=== PATIENT | female | born 1980 | race Caucasian/White ===

== ENCOUNTER → 2017-05-02 | Outpatient (CLI) | payer OTHER ==
[~2017-05-02] MED LIST: DOCO200C PO; IBUP600 PO; NORG0.253 PO
== END ==
LOC: CPRE 10:21
PROVIDERS: ATTEND Obstetrics & Gynecology
DX: N87.9 Dysplasia of cervix uteri, unspecified (principal)

== ENCOUNTER → 2017-05-07 | Day surgery (SDC) | payer OTHER ==
[~2017-05-07] VITALS: Ht 167.6 cm; Wt 57.9 kg
[~2017-05-07] MED LIST changes: +ACETAMINOPHEN 1000 MG/100 ML 100 ML IV ONE; +BUPIVACAINE/EPINEPHRINE 0.25% 50 ML VIAL ONE; +CHLORHEXIDINE GLUCONATE 2 % 1 PACK (2 CLOTHS) TOPICAL PRN; +DEXAMETHASONE SOD PHOS 4 MG/ML VIAL IV ONE; +DO NOT ADM ANY ANTICOAGULANT DRUGS PRN; +HYDROmorphone HCL PF 2 MG/ML VIAL ONE; +INSULIN HUMAN REGULAR 1,000 UNITS/10 ML VIAL SQ PRN; +IODINE (STRONG-LUGOLS) SOLN 20 DROP/1 ML BTL TOPICAL ONE; +KETOROLAC TROMETHAMINE 30 MG/ML (IVP) VIAL IV PUSH ONE; +KETOROLAC TROMETHAMINE 60 MG/2 ML (IM) VIAL IM ONE; +LACTATED RINGER'S 1000 ML IV PRN; +LIDOCAINE HCL 1% PF 5 ML AMPULE OTHER ONE; +METOPROLOL TARTRATE 25 MG TAB PO PRN; +MIDAZOLAM HCL 2 MG/2 ML VIAL IV ONE; +ONDANSETRON HCL 4 MG/2 ML VIAL IV PUSH ONE; +ONDANSETRON ODT 4 MG TAB PO PRN; +POVIDONE IODINE 5% (ANTISEPSIS KIT) 4 APPLICATIONS EACH NARE PRN; +PROPOFOL 200 MG/20 ML AMP IV ONE; +SODIUM CHLORID 0.9% 500 ML IV PRN; +ceFAZolin 1,000 MG/NS 100 ML IV SCH; +oxyCODONE/ACETAMINOPHEN 5 MG/325 MG TAB PO PRN
[2017-05-07 07:32] LABS: ANION GAP 5 MEQ/L (5-15); BICARBONATE 28.7 MEQ/L (21.0-32.0); BLOOD UREA NITROGEN 13 MG/DL (7-18); CHLORIDE 106 MEQ/L (98-107); GLOMERULAR FILTRATION RATE 79 ML/MIN (>89); POTASSIUM 3.9 MEQ/L (3.5-5.1); SODIUM (NA) 140 MEQ/L (136-145)
[2017-05-07 07:33] LABS: BACTERIA, URINE RARE /hpf; BLOOD, URINE MOD (NEG); CALCIUM OXALATE CRYSTALS,URINE MOD /hpf; COMMENT (UR) CULT NOT INDICATED; CULTURE IF INDICATED CULT NOT INDICATED; GLUCOSE,URINE NEG (NEG); KETONE, URINE NEG (NEG); MUCUS URINE FEW /lpf (OCC); NITRITE,URINE NEG (NEG); PH, URINE 6.5 (5.0-8.5); SQUAMOUS EPITHELIAL CELL URINE 2 /hpf (0-5); URINE COLOR YELLOW (YELLW/STRAW)
[2017-05-07 07:49] LABS: BHCG SCREEN QUALITATIVE LESS THAN 1 MIU/ML (0-5)
--- NOTE | 2017-05-07 09:35 | HHI.DCPOC ---
Discharge Care Plan Diagnosis: (1) HSIL on Pap smear of cervix Your Health Problems Are: Incisions/drains Vaginal bleeding Report Symptoms to Your Doctor -Temperature above 100.5 degrees -Redness, of incision or excessive or foul smelling drainage -Unusual pain or calf pain -Increased vaginal bleeding -Painful or difficulty urinating Goals to Promote Your Health * To prevent worsening of your condition and complications * To maintain your health at the optimal level Directions to Meet Your Goals Take your medications as prescribed Follow your dietary instruction Follow activity as directed Ensure plenty of rest for recovery Drink fluids for hydration Keep your appointments as scheduled Take your immunizations and boosters as scheduled If your symptoms worsen call your PCP, if no PCP go to Urgent Care Center or Emergency Room Smoking is Dangerous to Your Health. Avoid second hand smoke Call the 24-hour crisis hotline for domestic abuse at Amanda Navarrete MD May 07, 2017 09:35
--- NOTE | 2017-05-07 09:38 | HHI.PR ---
Immediate Post Op Note Procedure Date: May 07, 2017 Pre Op Diagnosis: (1) HSIL on Pap smear of cervix Post Op Diagnosis: (1) HSIL on Pap smear of cervix Surgeon: Amanda Navarrete Document Management Analyst(s): staff Procedure: exam under anesthesia, cold knife cone, endocervical curettage Findings: Uterus 8 wk in size, G2 prolapse under anesthesia, no adnexal masses. Uterus retroverted, cervix anteflexed. Colposcopy with lugol's noted decreased absorption at 5-6 o'clock near TZ. Complications: none Specimen(s) removed: Cervical cone biopsy and ecc. Estimated blood loss: minimal Anesthesia: LMA Drains: None IVF (900ml) Urinary Output (mLs): 500 Patient to: PACU Patient Condition: Good Amanda Navarrete MD May 07, 2017 09:38
[2017-05-07 11:30] VITALS: BP 120/72; PULSE 61; RESP 16; TEMP 97.6; O2SAT 99
--- NOTE | 2017-05-07 12:36 | MP ---
cc: AMANDA NAVARRETE MD DATE OF SURGERY 05/07/2017 PREOPERATIVE DIAGNOSIS High-grade squamous intraepithelial lesion. POSTOPERATIVE DIAGNOSIS High-grade squamous intraepithelial lesion. PROCEDURE PERFORMED Exam under anesthesia, cold knife cone and endocervical curettage. INDICATION The patient is a 37-year-old with a history of high-grade Pap who had undergone a LEEP in the office last year. Her Pap smear subsequently returned low-grade six months afterwards and 1 year afterwards returned as high-grade again. Discussed options of a re-excision versus hysterectomy. The patient did desire to proceed with re-excision. Discussed that a larger, more accurate specimen would be obtained with a cold knife cone. She elected to proceed with this route. SURGEON Amanda Navarrete MD MUCKER OPERATOR [place] staff ANESTHESIA LMA. IV FLUIDS 900 mL of lactated Ringer. ESTIMATED BLOOD LOSS Minimal. URINE OUTPUT 500 mL prior to procedure. INTRAOPERATIVE FINDINGS Uterus approximately 8 cm in size, retroverted. Cervix midline to anteflexed. Once Lugol's was applied, there was decreased absorption around five and 6 o'clock close to the os. Grade 2 uterine prolapse. COMPLICATIONS None. COUNTS Correct x 2. PREOPERATIVE ANTIBIOTICS Ancef. DVT PROPHYLAXIS SCDs to lower extremities. PROCEDURE IN DETAIL After review of informed consent, the patient was taken to the operating room where general LMA was performed without complication. She was placed in dorsal lithotomy position in [facility] cane stirrups. The perineum was prepped and draped in normal sterile fashion. Exam under anesthesia was performed. A weighted speculum was placed in the vagina. The anterior lip of the cervix was grasped with a single-tooth tenaculum. A paracervical block and a space block was performed with Marcaine 0.25% with epinephrine. Stay sutures at 3 o'clock and 9 o'clock were performed with #1 chromic, good hemostasis. A #11 scalpel was used to perform a cone biopsy of the cervix and endocervical curettage was then performed. Hemostasis was obtained with the Bovie, followed by Monsel's and Surgicel was packed in the base of the cervix. The stay sutures were tied across the Surgicel. Good hemostasis was observed. The speculum was then removed. She has placed in dorsal supine position. Anesthesia was reversed without complication. MD CORNELL Godwin /9:28 AM /12:25 PM
== END | disposition home or self-care (01) ==
LOC: HSDC 06:12
PROVIDERS: ATTEND Obstetrics & Gynecology
DX: D06.9 Carcinoma in situ of cervix, unspecified (principal); N93.9 Abnormal uterine and vaginal bleeding, unspecified
CPT/HCPCS: 00940; 57520; 80048; 81001; 84703; 86850; 86900; 86901; 88305; 88307; J0131; J0690; J1100; J1170; J1885; J2250; J2405; J7120